=== PATIENT | male | born 1955 | race Caucasian/White ===

== ENCOUNTER → 2020-07-01 14:14 | Outpatient (BNVA) | payer OTHER, SELFPAY | PROVIDERS: PCP Emergency Medicine Emergency Medical Services; Visit Provider Nurse Practitioner Family | DX: N40.1 Benign prostatic hyperplasia with lower urinary tract symptoms (principal); R39.9 Unspecified symptoms and signs involving the genitourinary system | CPT/HCPCS: 81003; 87086 ==

== ENCOUNTER 2020-07-30 07:15 | Outpatient (CLI) | payer OTHER, SELFPAY ==
--- NOTE | 2020-07-30 07:15 | XR_ITS ---
WS: [id number] Exam: XR KUB [id number] Date/Time of Exam: 07/30/2020 7:30 AM Reason For Exam: Z87.442 - Personal history of urinary calculi No sign of bowel obstruction or free air. No calcifications visualized over the region of the kidneys . A 2.2 cm calcification is seen just superior to the pubic symphysis and may represent bladder calcu li. Visualized organ margins are intact. Bony structures are unremarkable. Moderate amount of stool i n the colon. XR/XR KUB [id number] IMPRESSION: 1. 2.2 cm central pelvic calcification which may represent a bladder calculi. N o calcifications seen in the region of the kidneys. 2. No acute abdominal process.
== END 2020-07-30 07:16 | disposition home or self-care (01) ==
LOC: RAD 07:16
PROVIDERS: PCP Emergency Medicine Emergency Medical Services; Visit Provider Urology
DX: Z87.442 Personal history of urinary calculi (principal); Z20.822 Contact with and (suspected) exposure to COVID-19
CPT/HCPCS: 74018; 81003; 87635

== ENCOUNTER 2020-08-05 10:18 | Day surgery (SDC) | payer OTHER, SELFPAY ==
[2020-08-02 14:05] VITALS: BMI 26.3
[2020-08-05] VITALS (9 sets, daily range): BP systolic 99–136; BP diastolic 12–95; PULSE 67–93; RESP 12–18; TEMP 36.2–36.6; O2SAT 94–97
[2020-08-05] MEDS: sodium chloride 0.9% 1,000 ML 30 ML IV (11:05)
--- NOTE | 2020-08-05 11:45 | ANES.PREANE2 ---
Pre-Anesthetic Assessment Pre-Anesthetic Assessment: Height/Weight: Height 1.7 m Weight 76.204 kg Temp Pulse Resp BP Pulse Ox 97.8 F 74 16 133/95 96 08/05/20 10:40 08/05/20 10:40 08/05/20 10:40 08/05/20 10:40 08/05/20 10:40 Preop Diagnosis: cystolithiasis Proposed Procedure: Operation Date: 08/05/20 12:00 Proposed Procedures p Cystolitholapaxy 05706 [id number] N21.0(Not Applicable) - Stephen Murphy MD s ESWL(Not Applicable) - Stephen Murphy MD Was Beta Cuca taken within 24 hours: N/A Was Clonidine taken within 24 hours: N/A Last intake: Intake Last Liquid Date 08/05/20 Last Liquid Time 08:00 Last Solid Date 08/04/20 Last Solid Time 18:00 Social: Social History: No alcohol and No tobacco Airway: Submandibular: WNL Cervical ROM: WNL MP: 2 Dentition: False GI: Comments: Baldder stones Anesthetic Plan: ASA status: 2 Anesthesia: General Risk of > 500 ml blood loss (7ml/kg in children): No Meds/Allergies Current Medications: Current Medications Generic Name Dose Route Start Last Admin Trade Name Freq PRN Reason Stop Dose Admin Sodium Chloride 1,000 mls @ 30 ml s/hr 08/05/20 10:30 08/05/20 11:05 Sodium Chloride 0.9% IV 08/06/20 10:29 30 mls/hr .Q24H MINNA Administration PFSH Anesthesia PFSH: Medical History Bladder stone History of kidney stones Lower urinary tract symptoms (LUTS) Family History Father , at 86 Heart attack Mother , at 72 Dementia Social History Smoking and tobacco status: current every day smoker Alcohol intake: current Alcohol intake frequency: few times a week Marital status: Current occupational status: retired History of recent travel: No Data Anesthesia Cardiac Studies: No Data to Display
--- NOTE | 2020-08-05 12:04 | P.HPUD_ITS ---
Surgery/Procedure H&P Update DATE OF PROCEDURE: August 05, 2020 DATE H&P PERFORMED: 07/30/20 H&P UPDATE INFORMATION: I have reviewed H&P completed within last 30 days, I have examined patient prior to procedure, No changes to prior documentation and H&P is in [facility] EMR on date indicated PREOP DIAGNOSIS: cystolithiasis PLANNED PROCEDURE: Operation Date: 08/05/20 12:00 Proposed Procedures p Cystolitholapaxy 29747 [id number] N21.0(Not Applicable) - Stephen Murphy MD s ESWL(Not Applicable) - Stephen Murphy MD
--- NOTE | 2020-08-05 12:06 | PM.OP ---
Operative Report Date of procedure: August 05, 2020 Pre-op Diagnosis: cystolithiasis, Symptomatic Post-op diagnosis: same Procedure Done: 1. Extracorporeal shockwave lithotripsy to bladder stone 2. Cystolitholapaxy Specimens removed/disposition: Bladder stone fragments Pathology: Stone fragments Surgeon: Jeffrey Filler And Trimmer: Igor Anesthesia: General Estimated blood loss: Minimal Urine output: Not measured Complications: None Findings: Stone well fragmented with ESWL. All fragments removed Condition: stable Disposition: PACU Brief History: Patient originally presented with complaints of intermittency to his urinary stream and strangury at times with abrupt onset and resolution. Follow-up KUB what appeared to be a large bladder stone and this was then confirmed with cystoscopy. No other gross pathology identified. Admitted for ESWL with cystoscopy stone fragment removal. Procedure: After routine preoperative evaluation examination and obtaining of informed consent he was taken to the operating suite on 08/05/2020 where general anesthesia was administered without difficulty after appropriate timeout was performed, SCDs confirmed to be functioning, preoperative antibiotics administered, beta-lonnie protocol confirmed. Positioned on the Dornier unit in supine position paying careful attention to avoiding pressure points. Bladder was filled with about 200 cc of normal saline. The shock head was positioned anteriorly. The stone was easily localized and the focal point set with biplanar fluoroscopy. Shockwave therapy was initiated at a rate of 70 and intensity of 1 with advancement to an intensity of 4 and later 6.. The stone showed failed to show significant change. After 2000 shocks the shock head was then positioned posteriorly to get a different angle on the stone and additional 1200 shocks were administered with minimal change. It was decided at this point to do a cystoscopy and likely complete the task with laser lithotripsy. He was then prepped and draped in usual sterile fashion in dorsolithotomy position paying careful attention to avoiding pressure points. 21 [place] cystoscope with 30 degree lens was introduced into the urethra meatus and advanced into the bladder under videoscopy. Bladder was systematically examined. The stone was for the most part intact with some small fragments on the floor the bladder. It was clear that the shockwave therapy had not completed the job. A 365 ?m thulium superpulse laser fiber was then utilized to complete the fragmentation. Settings were both bladder stone and also lithotripsy with dusting. Good change was noted and ultimately the stone was completely fragmented all the fragments removed with an Ellik evacuator. Bladder wall was intact. Final inspection showed no fragments beyond some adherent sand. There was no bleeding. He tolerated procedure well without complications and was awakened in the operating room and returned to the cart room in stable condition. PLANS: 1. Dissipate discharge from outpatient surgery 2. Follow-up in 6 weeks with KUB
--- NOTE | 2020-08-05 14:36 | P.PCN_ITS ---
PACU note PACU note: VSS, Good respiratory effort, report to CHAIRMAN PRESIDENT AND CHIEF EXECUTIVE OFFICER
--- NOTE | 2020-08-05 14:36 | PM.PACU ---
PACU note PACU note: VSS, Good respiratory effort, report to SUPERVISOR CUSTOMER COMPLAINT SERVICE
--- NOTE | 2020-08-05 14:53 | ANE.PACU2 ---
Inpatient post-anesthesia follow up: Airway intact: Yes Vital signs: Temperature 97.1 F Pulse Rate 77 Respiratory Rate 16 Blood Pressure 104/71 Pulse Oximetry 95 Oxygen Delivery Me thod Room Air Oxygen Flow Rate 8 Fraction of Inspir ed Oxygen Hydration adequate: Yes Nausea and vomiting: No Pain level: 2 Mental status: Baseline
[2020-08-11 13:22] LABS: Stone Source BLADDER
== END 2020-08-05 16:00 | disposition home or self-care (01) ==
PROVIDERS: PCP Emergency Medicine Emergency Medical Services; Visit Provider Urology
PROC: 0TCB8ZZ Extirpation of Matter from Bladder, Via Natural or Artificial Opening Endoscopic (ICD-10-PCS; CPT 50590; principal; 2020-08-05 12:00)
PROC: (CPT 50590; 2020-08-05 12:00)
DX: N21.0 Calculus in bladder (principal); F17.210 Nicotine dependence, cigarettes, uncomplicated
CPT/HCPCS: 50590; 52318; 82365; 88305; J1100; J2405; J2704; J2710; J3010; J3490; J7030

== ENCOUNTER 2020-09-17 09:14 | Outpatient (CLI) | payer OTHER, SELFPAY ==
--- NOTE | 2020-09-17 09:23 | XR_ITS ---
WS: [id number] Exam: XR KUB [id number] Date/Time of Exam: 09/17/2020 9:23 AM Reason For Exam: bladder stone No bowel obstruction or free air noted. No calcifications superimposing the renal silhouettes. Previo usly noted bladder calculus is not seen on today's exam. Visualized organ margins are intact. Regiona l bony structures appear normal. XR/XR KUB [id number] IMPRESSION: 1. No acute abdominal finding. 2. Previously noted bladder calculus is not seen on today's exam.
== END 2020-09-17 09:15 | disposition home or self-care (01) ==
LOC: RAD 09:17
PROVIDERS: PCP Emergency Medicine Emergency Medical Services; Visit Provider Urology
DX: N21.0 Calculus in bladder (principal)
CPT/HCPCS: 74018; 81003

== ENCOUNTER 2022-02-03 15:49 | Outpatient (CLI) | payer OTHER, SELFPAY ==
--- NOTE | 2022-02-03 16:02 | XR_ITS ---
WS: [id number] KUB, AP view, 02/03/2022 Clinical Data: Stones Comparison: KUB, 09/17/2020. Findings: No abnormal intraabdominal masses or calcifications are seen. There is no dilatated small bowel or ev idence of obstruction. No bladder calculus is noted. There is fecal material in the transverse colon. XR/XR KUB [id number] Impression: Negative KUB.
== END 2022-02-03 15:50 | disposition home or self-care (01) ==
LOC: RAD 15:56
PROVIDERS: PCP Emergency Medicine Emergency Medical Services; Visit Provider Urology
DX: N20.9 Urinary calculus, unspecified (principal)
CPT/HCPCS: 74018; 81003; 99213

== ENCOUNTER → 2022-09-09 13:40 | Outpatient (BNVA) | payer OTHER, SELFPAY | PROVIDERS: PCP Emergency Medicine Emergency Medical Services; Referring Provider Emergency Medicine Emergency Medical Services; Visit Provider Nurse Practitioner Family | DX: L81.4 Other melanin hyperpigmentation (principal); D22.5 Melanocytic nevi of trunk; Z71.89 Other specified counseling; L85.3 Xerosis cutis; L57.8 Other skin changes due to chronic exposure to nonionizing radiation; S40.862A Insect bite (nonvenomous) of left upper arm, initial encounter; W57.XXXA Bitten or stung by nonvenomous insect and other nonvenomous arthropods, initial encounter; L40.0 Psoriasis vulgaris | CPT/HCPCS: 99204 ==

== ENCOUNTER → 2022-10-05 14:14 | Outpatient (BNVA) | payer OTHER, SELFPAY | PROVIDERS: PCP Emergency Medicine Emergency Medical Services; Visit Provider Nurse Practitioner Family | DX: L81.4 Other melanin hyperpigmentation (principal); D22.5 Melanocytic nevi of trunk; Z71.89 Other specified counseling; L85.3 Xerosis cutis; L40.0 Psoriasis vulgaris | CPT/HCPCS: 99214 ==

== ENCOUNTER → 2023-04-29 12:24 | Outpatient (BNVA) | payer OTHER, SELFPAY | PROVIDERS: PCP Emergency Medicine Emergency Medical Services; Visit Provider Podiatrist Foot & Ankle Surgery | DX: Q82.8 Other specified congenital malformations of skin (principal) | CPT/HCPCS: 17110; 99203 ==

== ENCOUNTER → 2023-05-13 11:01 | Outpatient (BNVA) | payer OTHER, SELFPAY | PROVIDERS: PCP Emergency Medicine Emergency Medical Services; Visit Provider Podiatrist Foot & Ankle Surgery | DX: Q82.8 Other specified congenital malformations of skin (principal) | CPT/HCPCS: 17110 ==

== ENCOUNTER → 2023-05-27 10:20 | Outpatient (BNVA) | payer OTHER, SELFPAY | PROVIDERS: PCP Emergency Medicine Emergency Medical Services; Visit Provider Podiatrist Foot & Ankle Surgery | DX: Q82.8 Other specified congenital malformations of skin (principal) | CPT/HCPCS: 99213 ==